=== PATIENT | male | born 1985 | race Two or more races ===

== ENCOUNTER → 2024-03-13 | Outpatient (CLI) | payer OTHER, SELFPAY ==
[2024-03-13 18:00] LABS: Alanine Aminotransfer ALT/SGPT 28 U/L (16-61)
[2024-03-13 18:34] LABS: HIV - WCH Non-Reactive (Nonreactive); Hepatitis B Surface Antibody Reactive; Hepatitis C Antibody Non-Reactive (Nonreactive)
== END | disposition home or self-care (01) ==
LOC: MTLAB 15:04
PROVIDERS: Referring Provider Physician Assistant; Visit Provider Physician Assistant
DX: Z77.21 Contact with and (suspected) exposure to potentially hazardous body fluids (principal)
CPT/HCPCS: 36415; 84460; 86703; 86706; 86803